=== PATIENT | male | born 1940 | race African-American/Black ===

== ENCOUNTER 2016-09-05 11:00 | Inpatient (IN) | payer OTHER ==
[2016-09-01 15:44] LABS: WBC (NOT ORDERED) (RFLEX) 0 (0-5)
[2016-09-01 16:14] LABS: BASOPHILS 0.5 %; BASOPHILS ABSOLUTE 0.05 10/3/uL (0.0-0.16); EOSINOPHILS 1.9 %; EOSINOPHILS ABSOLUTE 0.21 10/3/uL (0.0-0.53); HEMATOCRIT 41.2 % (40.0-51.0); HEMOGLOBIN 14.1 g/dL (13.6-17.8); IMMATURE GRANULOCYTES 0.3 %; IMMATURE GRANULOCYTES ABSOLUTE 0.03 10/3/uL (0.0-0.11); LYMPHOCYTES 43.9 %; LYMPHOCYTES ABSOLUTE 4.85 10/3/uL (0.67-4.30); MANUAL DIFF NO %; MEAN CORPUS HGB CONC 34.2 g/dL (32.0-36.0); MEAN CORPUSCULAR HEMOGLOB 33.3 pg (26.0-34.0); MEAN CORPUSCULAR VOLUME 97.4 fL (80-100); MEAN PLATELET VOLUME 11.6 fL (9.2-13.0); MONOCYTES 6.7 %; MONOCYTES ABSOLUTE 0.74 10/3/uL (0.21-1.20); NEUTROPHILS 46.7 %; NEUTROPHILS ABSOLUTE 5.16 10/3/uL (2.02-8.40); PLATELET COUNT 218 10/3/uL (150-400); RED CELL COUNT 4.23 10/6/uL (4.7-6.1)
[2016-09-01 16:32] LABS: BUN (BLOOD UREA NITROGEN) 24 MG/DL (6-23); CHLORIDE, SERUM 104 MMOL/L (96-112); CO2 (CARBON DIOXIDE) 26 MMOL/L (24-34); CREATININE 1.14 MG/DL (0.70-1.30); GFR AFRICAN AMERICAN 72 ML/MIN (>=60); GFR NON AFRICAN AMERICAN 62 ML/MIN (>=60); GLUCOSE, SERUM 93 MG/DL (60-99); POTASSIUM, SERUM 4.2 MMOL/L (3.5-5.3); SODIUM, SERUM 139 MMOL/L (135-148)
[2016-09-01 16:58] LABS: ASCORBIC ACID (UR NOT ORDER) NEG (NEG); BILIRUBIN, URINE NEGATIVE (NEG); KETONE, URINE NEGATIVE (NEG); LEUKOCYTE ESTERASE(NOT OR NEG (NEG)
--- NOTE | ~2016-09-05 | OP ---
Record Of Operation [facility] [address] [place]. [address] NAME: JENIFER RASHEED : 38 STATUS : DIS IN PAT#: [id number] AGE: 75 ADM/REG DATE : 09/05/16 MR#: [id number] REPORT SERV DATE: 09/07/16 DICTATED BY: ISAAC RUIZ DATE: 09/07/16 REPORT STATUS : Draft TRANSCRIBED BY: MODL DATE: 09/07/16 DATE OF PROCEDURE: 09/05/2016 PREPROCEDURE DIAGNOSIS: Saccular abdominal aortic aneurysm of 5 cm. POSTOPERATIVE DIAGNOSIS: Saccular abdominal aortic aneurysm of 5 cm. PROCEDURE PERFORMED: 1. Endovascular aneurysm repair with an Endologix endograft. 2. Main body endograft 25 x 70 x 116 x 30. 3. Proximal extension cuff 28 x 28 x 75. SURGEON: Isaac Ruiz M.D. ANESTHESIA: General. COMPLICATIONS: None. INDICATION FOR PROCEDURE: Secondary to this very pleasant 75-year-old gentleman presenting with a saccular abdominal aortic aneurysm of significant size approximately 5 cm. Recommendations were made for endovascular aneurysm repair. Risks and benefits discussed. Consent was obtained. DETAILS OF PROCEDURE: The patient was brought to the endovascular operating room, placed in supine position, prepped and draped in routine sterile fashion to the bilateral groin region. The right femoral artery was interrogated with ultrasound found to be compressible. Needle was passed into this artery under direct ultrasound vision. A picture was then taken and placed on the chart. Next, wires passed into the aorta. A 6-Thai sheath was then placed, and then 2 ProGlide were then placed in the right femoral artery and as a pre-close technique. An 11-Thai sheath was then placed in the right groin, and on the left side, the femoral artery was cannulated with micropuncture needle under ultrasound guidance. The wire was then placed and a 7-Thai sheath was then placed. Next, via the left side, a catheter was then advanced into the aorta and this was a snare catheter. On the right side, a Lunderquist wire was then advanced all way into the thoracic aorta and had the J-wire associated with it placing this in the arch of the aorta. Next, 5000 units of heparin was given on circulate. The abdominal endograft sheath was then advanced over this wire on the right side to the level of the aortic bifurcation. Next, an endograft measuring 25 x 70 x 116 x 30 was then passed through the right side and into the abdominal aorta. The contralateral gate was snared. Next, the gate was then pulled down seated on the aortic bifurcation and then the main body was deployed. The ipsilateral limb was then deployed, and the sheath was then advanced into the patient further. The left limb was then deployed. Next, the center lumen was then gained via the left side. Orefield flush catheter was advanced to the level of T12 and a 15-degree cranial arteriogram was then performed of the aorta defining the renal arteries. An extension cuff was indicated. This was a 28 x 28 x 75 endograft passed into position and deployed. This was deployed just below the lowest renal artery. Post stent deployment angioplasty was then performed after center lumen was Record Of Operation [address] [place]. [address] NAME: JENIFER RASHEED : 38 STATUS : DIS IN PAT#: [id number] AGE: 75 ADM/REG DATE : 09/05/16 MR#: [id number] REPORT SERV DATE: 09/07/16 DICTATED BY: ISAAC RUIZ DATE: 09/07/16 REPORT STATUS : Draft TRANSCRIBED BY: MODL DATE: 09/07/16 gained, and the iliac arteries were then angioplastied with a 10 x 4 balloon sequentially. Completion imaging showed wide patency of the renal arteries, Endograft, and then flow to the external iliac arteries bilaterally. 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 The left groin was then closed with an Angio-Seal. The right groin was then closed with pre-close technique. It was successful. A small stitch was then placed under the skin and dressings were applied. The patient tolerated the procedure well. CL/DALE Isaac Ruiz M.D. / [id number] CC: Suzanne Clinton JAMES DANIEL
[~2016-09-05 11:00] MED LIST: ASA5GR PO; ATEN50 PO; GLUCPH PO; PRINZIDE1 TA1 PO; Z300 PO; ZOCOR20 PO
[2016-09-06 03:56] LABS: BASOPHILS 0.3 %; BASOPHILS ABSOLUTE 0.03 10/3/uL (0.0-0.16); EOSINOPHILS 0.3 %; EOSINOPHILS ABSOLUTE 0.03 10/3/uL (0.0-0.53); HEMOGLOBIN 11.8 g/dL (13.6-17.8); IMMATURE GRANULOCYTES 0.3 %; IMMATURE GRANULOCYTES ABSOLUTE 0.03 10/3/uL (0.0-0.11); LYMPHOCYTES 16.5 %; LYMPHOCYTES ABSOLUTE 1.85 10/3/uL (0.67-4.30); MEAN CORPUS HGB CONC 34.5 g/dL (32.0-36.0); MEAN CORPUSCULAR HEMOGLOB 33.6 pg (26.0-34.0); MEAN CORPUSCULAR VOLUME 97.4 fL (80-100); MEAN PLATELET VOLUME 10.8 fL (9.2-13.0); MONOCYTES 5.6 %; MONOCYTES ABSOLUTE 0.63 10/3/uL (0.21-1.20); NEUTROPHILS ABSOLUTE 8.62 10/3/uL (2.02-8.40); PLATELET COUNT 171 10/3/uL (150-400); RBC DISTRIBUTION WIDTH 13.7 % (12.0-16.0); RED CELL COUNT 3.51 10/6/uL (4.7-6.1); WHITE BLOOD CELLS 11.2 10/3/uL (4.5-10.5)
[2016-09-06 03:57] LABS: HEMATOCRIT 34.2 % (40.0-51.0); MANUAL DIFF NO %
[2016-09-06 04:08] LABS: CALCIUM, SERUM 9.1 MG/DL (8.5-10.4); CHLORIDE, SERUM 105 MMOL/L (96-112); CO2 (CARBON DIOXIDE) 22 MMOL/L (24-34); GFR AFRICAN AMERICAN 114 ML/MIN (>=60); GFR NON AFRICAN AMERICAN 98 ML/MIN (>=60); GLUCOSE, SERUM 103 MG/DL (60-99); POTASSIUM, SERUM 3.7 MMOL/L (3.5-5.3); SODIUM, SERUM 139 MMOL/L (135-148)
[2016-09-06 04:16] LABS: BUN (BLOOD UREA NITROGEN) 12 MG/DL (6-23); CREATININE 0.59 MG/DL (0.70-1.30)
== END 2016-09-06 13:34 | disposition home or self-care (01) | DRG 269 ==
LOC: SDC/OF 11:00 → CVICU 19:52
PROVIDERS: Specialist
PROC: 04V03DZ Restriction of Abdominal Aorta with Intraluminal Device, Percutaneous Approach (ICD-10-PCS; principal; 2016-09-05 13:15)
DX: I71.4 Abdominal aortic aneurysm, without rupture (principal); E11.9 Type 2 diabetes mellitus without complications; I10 Essential (primary) hypertension; E78.00 Pure hypercholesterolemia, unspecified; I25.10 Atherosclerotic heart disease of native coronary artery without angina pectoris; Z95.5 Presence of coronary angioplasty implant and graft; Z79.82 Long term (current) use of aspirin; Z79.899 Other long term (current) drug therapy; Z79.84 Long term (current) use of oral hypoglycemic drugs
CPT/HCPCS: 34802; 34825; 36200; 36415; 71020; 75952; 75953; 76937; 80048; 81001; 82962; 85025; 85610; 86850; 86900; 86901; 87641; 93005; A9270-GY; C1725; C1760; C1769; C1874; C1876; C1894; J0690; J2250; J2270; J2370; J2405; J2710; J3010; J3370; Q9967